=== PATIENT | male | born 1960 | race Two or more races ===

== ENCOUNTER 2017-07-28 18:11 | Emergency (ER) | payer SELFPAY ==
[2017-07-28] MEDS: DIPHTH,PERTUSS(ACELL),TET TOX 0.5 ML DISP.SYRIN. VAX IM (19:40)
== END 2017-07-28 19:54 | disposition home or self-care (01) ==
LOC: ER 18:11
DX: I83.91 Asymptomatic varicose veins of right lower extremity (principal)
CPT/HCPCS: 90471; 90715; 99283